=== PATIENT | male | born 1985 | race American Indian/Alaskan Native ===

== ENCOUNTER 2016-09-30 20:09 | Emergency (ER) | payer OTHER ==
[2016-09-30 23:13] VITALS: BP 134/83
--- NOTE | 2016-09-30 23:32 | Emergency Department Report ---
Chief Complaint: Neck Pain/Injury Stated Complaint: BODYACHES/CHILLS Time Seen by Provider: 09/30/16 23:20 - HPI History of Present Illness: Pt is a 31-year-old male who presents to ED complaining of posterior neck pain 2 weeks. She is about 2 weeks ago he started to experience burning type pain in the back of his neck. Patient denies any fall or recent trauma. Patient states pain is relieved with flexing of his neck. He admits shivering and feeling cold from time to time. Patient denies any medication use. He states he is allergic to peanuts. Patient states has not been outside the country within the last 30 days. Patient denies fever/nausea/vomiting/headache/blurred vision/dizziness/chest pains or shortness of breath. - ROS Review of Systems: Noted in HPI - Exam Vital Signs: Vital Signs 09/30/16 09/30/16 20:54 23:12 Temperature 98.1 F 98.5 F Pulse Rate 55 L 53 L Respiratory 18 18 Rate Blood Pressure 133/81 Blood Pressure 134/83 [Left] O2 Sat by Pulse 100 100 Oximetry Physical Exam: GENERAL: Alert and oriented x3, no apparent distress, Normal Gait, atraumatic. HEAD: Head is normocephalic and a-traumatic. EYES: Extra ocular muscles are intact. Pupils are equal, round, and reactive to light and accommodation. MOUTH:Mouth is well hydrated and without lesions. Tonsils nonerythematous or swollen, Uvula midline, Tongue not elevated. Mucous membranes are moist. Posterior pharynx clear, no exudate or lesions. Patent airways. NECK: Supple. Non edematous, No carotid bruits. No lymphadenopathy or thyromegaly. Full range of motion. Nontender to palpation of C-spine. She remembered to flex and extend neck without difficulty. LUNGS: Symetrical with respiration, No wheezing, no rales or crackles, CTAB. HEART: S1, S2 present, regular rate and rhythm without murmur, no rubs, no gallops. ABDOMEN: No organomegaly was noted,Positive bowel sounds, soft, and non- distended. . Nontender to palpation on all Quadrants, NO CVA tenderness. NEUROLOGIC: No focal Deficit, Cranial nerves II through XII are grossly intact. No loss of sensation, No facial droop, SKIN: Warm and dry, No lesions, No ulceration or induration present. MSE screening note: Focused history and physical exam performed. Due to findings the following was ordered: ED Medical Decision Making - Medical Decision Making Discussed case with attending Dr. Carrera. Vital signs stable. Patient is not in any acute arrest or distress. Negative examination. Dr Carrera agrees that labs be drawn. If His labs within normal limits patient can be sent home with muscle relaxant and NSAIDS. Labs ordered. Discussed case with ELIZABETH CARDENAS. ED Disposition for MSE Condition: Stable Referrals: PRIMARY CARE, [Primary Care Provider] - 3-5 Days
[2016-09-30 23:50] LABS: Basophils % (Auto) 0.5 % (0.0-1.8); Eosinophils % (Auto) 1.2 % (0.0-4.3); Hematocrit 48.1 % (35.5-45.6); Hemoglobin 15.9 gm/dl (11.8-15.2); Mean Corpuscular HGB Conc 33 % (32-34); Mean Corpuscular Hemoglobin 32 pg (28-32); Mean Corpuscular Volume 95 fl (84-94); Platelet Count 206 K/mm3 (140-440); Red Blood Count 5.04 M/mm3 (3.65-5.03); Red Cell Distribution Width 13.1 % (13.2-15.2); White Blood Count 7.4 K/mm3 (4.5-11.0)
[2016-10-01 00:08] LABS: Alanine Aminotransferase 17 units/L (7-56); Albumin 4.8 g/dL (3.9-5); Albumin/Globulin Ratio 1.5 %; Alkaline Phosphatase 88 units/L (35-129); BUN/Creatinine Ratio 11.42; Blood Urea Nitrogen 8 mg/dL (9-20); Calcium 9.8 mg/dL (8.4-10.2); Carbon Dioxide 27 mmol/L (22-30); Glucose 80 mg/dL (75-100); Total Protein 8.1 g/dL (6.3-8.2)
[2016-10-01 00:09] LABS: Anion Gap 19 mmol/L; Chloride 99.8 mmol/L (98-107); Potassium 3.6 mmol/L (3.6-5.0); Sodium 142 mmol/L (137-145)
[2016-10-01 00:17] LABS: INR 1.11 (0.87-1.13)
[2016-10-01 00:18] LABS: Partial Thromboplastin Time 32.6 Sec. (24.2-36.6)
--- NOTE | 2016-10-01 00:46 | Cat Scan Report ---
FINAL REPORT PROCEDURE: CT CERVICAL SPINE WO CON TECHNIQUE: Computerized tomography of the cervical spine was performed from the skull base to T1 without contrast material. HISTORY: neck pain no trauma COMPARISON: No prior studies are available for comparison. FINDINGS: The alignment of the vertebral segments is normal. The heights of the vertebral bodies and the disc spaces are maintained. No acute fracture or dislocation of the cervical spine the spinal canal is adequate at all levels. IMPRESSION: No evidence of acute fracture or dislocation of the cervical spine..
[2016-10-01 01:03] LABS: Bilirubin,Urine NEG (Negative); Blood,Urine NEG (Negative); Ketones,Urine NEG (Negative); Leukocyte Esterase,Urine NEG (Negative); Mucus,Urine 2+ /HPF; Nitrite,Urine NEG (Negative); Protein,Urine <15 mg/dL mg/dL (Negative)
== END 2016-10-01 02:00 | disposition home or self-care (01) ==
LOC: ED 20:09
DX: M54.2 Cervicalgia (principal)
CPT/HCPCS: 36415; 72125; 80053; 81001; 85025; 85610; 85730; 87086